=== PATIENT | female | born 1945 | race Two or more races ===

== ENCOUNTER 2021-04-25 03:12 | Emergency (ER) | payer OTHER, MEDICAID ==
[~2021-04-25] VITALS: Ht 160 cm; Wt 79.4 kg
[~2021-04-25 03:12] MED LIST: ATEN-60 OR; DOCU-55 OR; EMBREL; FER325T OR; FOLI1TAB6 OR; LEVO125T7 OR; LOVA40TA72 OR; METF-370; POTA-264 OR; PROCTOZONE CREAM; TRIA50CA40 OR
[2021-04-25 04:10] LABS: Basophils # (auto) 0 10 ^3/uL (0-0.2); Basophils % (auto) 0.2 % (0.0-2.0); Eosinophils # (auto) 0 10 ^3/uL (0-0.8); Eosinophils % (auto) 0.3 % (0.0-7.0); Hematocrit 35.4 % (36.0-46.0); Hemoglobin 11.9 g/dL (12.2-16.2); Lymphocytes # (auto) 1.1 10 ^3/uL (0.4-5.4); Lymphocytes % (auto) 23.2 % (10.0-50.0); Mean Corpuscular Hemoglobin 30.9 pg (28.0-32.0); Mean Corpuscular Hgb Conc. 33.6 g/dL (32.0-36.0); Monocytes # (auto) 0.2 10 ^3/uL (0-1.3); Monocytes % (auto) 3.4 % (0.0-12.0); Neutrophils # (auto) 3.5 10 ^3/uL (1.6-8.6); Neutrophils % (auto) 72.9 % (37.0-80.0); Red Blood Cells 3.85 10^6/uL (4.0-5.20); Red Cell Distribution Width 13.7 % (11.8-14.3); White Blood Cell 4.8 10^3/uL (4.4-10.8)
[2021-04-25 04:27] LABS: Albumin 3.7 g/dL (3.4-5.0); Anion Gap 9 (5-15); BUN/Creatinine Ratio 20.5; Blood Urea Nitrogen 18 mg/dL (7-18); Calcium 8.6 mg/dL (8.5-10.1); Carbon Dioxide 24 mmol/L (21-32); Chloride 105 mmol/L (98-107); GFR African American 81 mL/min; GFR Non-African American 67 mL/min; Glucose 141 mg/dL (74-106); Lipase 87 U/L (73-393); Potassium 3.9 mmol/L (3.5-5.1); Sodium 138 mmol/L (136-145)
[2021-04-25 04:30] LABS: Alanine Aminotransferase 41 U/L (13-56); Alkaline Phosphatase 42 U/L (45-117); Aspartate Aminotransferase 44 U/L (15-37); Bilirubin, Total 0.4 mg/dL (0.2-1.0); Total Protein 8.1 g/dL (6.4-8.2)
[2021-04-25 05:12] LABS: Urine Bacteria NONE SEEN /hpf (None Seen); Urine Blood Negative /uL (Negative); Urine Specific Gravity 1.016 (1.001-1.035); Urine WBC 1 /hpf (0 - 5)
[2021-04-25 09:20] VITALS: BP 149/63
== END 2021-04-25 09:44 | disposition home or self-care (01) ==
LOC: ER 03:12
DX: R10.84 Generalized abdominal pain (principal); I10 Essential (primary) hypertension; E11.9 Type 2 diabetes mellitus without complications; E78.5 Hyperlipidemia, unspecified; E03.9 Hypothyroidism, unspecified; Z86.2 Personal history of diseases of the blood and blood-forming organs and certain disorders involving the immune mechanism; Z79.2 Long term (current) use of antibiotics; Z79.899 Other long term (current) drug therapy; Z88.8 Allergy status to other drugs, medicaments and biological substances
CPT/HCPCS: 36415; 74176; 80053; 81001; 83605; 83690; 85025

== ENCOUNTER 2024-04-11 15:36 | Emergency (ER) | payer OTHER, MEDICAID ==
[~2024-04-11] VITALS: Ht 157.5 cm; Wt 71.8 kg
[~2024-04-11 15:36] MED LIST changes: +FOLI-119 OR; -FOLI1TAB6 OR
--- NOTE | 2024-04-11 15:52 | ED.PDOC ---
HPI (NEURO) HPI Comments 78 y.o female with PMH of HTN, DM, hyperlipidemia, thyroid disease, arthritis, and chronic back pain, presents to the ED via EMS for a chief complaint of right sided headache that started 5-6 days ago. Patient describes pain as sharp, constant, non radiating and rating a 10/10 on the pain scale. Patient states pain presented unprovoked, at rest, has been taking 600mg of Tylenol daily but has no relief. No precipitating factors noted. Patient denies any other associating symptoms or recent head trauma/falls. Time Seen by MD: 15:43 Primary Care Provider: Maxim DECKER Reviewed Notes: Nurses Notes, Director Smb Sales Notes, Medications, Allergies Information Source: Patient, Emergency Med Personnel Mode of Arrival: EMS Severity: Moderate Headache Severity: Moderate Timing: Days (5-6) Duration: Since onset Headache Quality: Sharp Headache Location: Other (right sided ) Onset: At rest Circumstances: Spontaneous History of: DM, Hypertension Modifying factors: Nothing Associated Signs and Symptoms: Headache Past Medical History PAST MEDICAL HISTORY: Anemia, Arthritis, DM, High Lipids, HTN, Thyroid Surgical History: Surgical History (Other): back 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 History Family History Family History: Reviewed,noncontributory to illness Social History Smoker: Non-Smoker Alcohol: Rarely Drugs: Denies Drug Use Lives In: Home Constitutional: denies: chills, diaphoresis, fatigue, fever, malaise, sweats, weakness, others EENTM: denies: blurred vision, double vision, ear bleeding, ear discharge, ear drainage, ear pain, ear ringing, eye pain, eye redness, hearing loss, mouth pain, mouth swelling, nasal discharge, nose bleeding, nose congestion, nose pain, photophobia, tearing, throat pain, throat swelling, voice changes, others Respiratory: denies: cough, hemoptysis, orthopnea, SOB at rest, shortness of breath, SOB with excertion, stridor, wheezing, others Cardiovascular: denies: chest pain, dizzy spells, diaphoresis, Dyspnea on exertion, edema, irregular heart beat, left arm pain, lightheadedness, palpitations, PND, syncope, others Gastrointestinal: denies: abdomen distended, abdominal pain, blood streaked bowels, constipated, diarrhea, dysphagia, difficulty swallowing, hematemesis, melena, nausea, poor appetite, poor fluid intake, rectal bleeding, rectal pain, vomiting, others Genitourinary: denies: abnormal vagina bleeding, burning, dyspareunia, dysuria, flank pain, frequency, hematuria, incontinence, pain, , vagina discharge, urgency, others Neurological: reports: headache; denies: dizziness, fainting, left sided numbness, left sided weakness, numbness, paresthesia, pre-existing deficit, right sided numbness, right sided weakness, seizure, speech problems, tingling, tremors, weakness, others Musculoskeletal: denies: back pain, gout, joint pain, joint swelling, muscle pain, muscle stiffness, neck pain, others Integumetry: denies: bruises, change in color, change in hair/nails, dryness, laceration, lesions, lumps, rash, wounds, others Allergic/Immunocompromised: denies: Difficulty Healing, Frequent Infections, Hives, Itching, others Hematologic/Lymphatic: denies: anemia, blood clots, easy bleeding, easy bruising, swollen glands, others Endocrine: denies: excessive hunger, excessive sweating, excessive thirst, excessive urination, flushing, intolerance to cold, intolerance to heat, unexplained weight gain, unexplained weight loss, others Psychiatric: denies: anxiety, bipolar disorder, depression, hopeless, panic disorder, schizophrenia, sleepless, suicidal, others All Other Systems: Reviewed and Negative Physical Exam General Appearance: Mild Distress HEENT: Normal ENT Inspection, Pharynx Normal, TMs Normal Neck: Full Range of Motion, Non-Tender, Normal, Normal Inspection Respiratory: Chest Non-Tender, Lungs Clear, No Accessory Muscle Use, No Respiratory Distress, Normal Breath Sounds Cardiovascular: No Edema, No JVD, No Murmur, No Gallop, Normal Peripheral Pulses, Regular Rate/Rhythm Breast Exam: Deferred Gastrointestinal: No Organomegaly, Non Tender, No Pulsatile Mass, Normal Bowel Sounds, Soft Genitalia: Deferred Pelvic: Deferred Rectal: Deferred Extremities: No calf tenderness, Normal capillary refill, Normal inspection, Normal range of motion, Non-tender, No pedal edema Musculoskeletal : Apperance: Normal Neurologic: Alert, 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 Was a procedure done?: No Differential Diagnosis (SZ) Seizure: Syncope CVA: Electrolyte Imbalance Headache: Cluster, Migraine, Subarachnoid Hemorrhage X-Ray, Labs, Meds, VS Vital Signs Date Time Temp Pulse Resp B/P (MAP) Pulse Ox O2 Delivery O2 Flow Rate FiO2 04/11/24 16:57 68 16 124/52 04/11/24 16:27 88 16 166/95 04/11/24 16:25 88 16 97 Room Air* 0 21 04/11/24 16:23 98.6 88 16 166/95 (118) 95 98.6 04/11/24 15:57 98.1 85 18 161/85 (110) 99 Lab Test 04/11/24 16:03 Range/Units White Blood Count 5.9 4.4-10.8 10^3/uL Red Blood Count 3.85 L 4.0-5.20 10^6/uL Hemoglobin 12.3 12.2-16.2 g/dL Hematocrit 36.4 36.0-46.0 % Mean Corpuscular Volume 94.4 80.0-100.0 fL Mean Corpuscular Hemoglobin 32.0 28.0-32.0 pg Mean Corpuscular Hemoglobin Concent 33.9 32.0-36.0 g/dL Red Cell Distribution Width 13.5 11.8-14.3 % Platelet Count 206 140-450 10^3/uL Mean Platelet Volume 7.2 6.9-10.8 fL Neutrophils (%) (Auto) 53.4 37.0-80.0 % Lymphocytes (%) (Auto) 35.1 10.0-50.0 % Monocytes (%) (Auto) 9.8 0.0-12.0 % Eosinophils (%) (Auto) 1.5 0.0-7.0 % Basophils (%) (Auto) 0.2 0.0-2.0 % Neutrophils # (Auto) 3.1 1.6-8.6 10 ^3/uL Lymphocytes # (Auto) 2.1 0.4-5.4 10 ^3/uL Monocytes # (Auto) 0.6 0-1.3 10 ^3/uL Eosinophils # (Auto) 0.1 0-0.8 10 ^3/uL Basophils # (Auto) 0 0-0.2 10 ^3/uL Nucleated Red Blood Cells 0.0 % Sodium Level 143 136-145 mmol/L Potassium Level 4.0 3.5-5.1 mmol/L Chloride Level 108 H 98-107 mmol/L Carbon Dioxide Level 29 20-31 mmol/L Anion Gap 6 5-15 Blood Urea Nitrogen 13 9-23 mg/dL Creatinine 0.95 0.550-1.02 mg/dL Glomerular Filtration Rate Calc 62 >90 mL/min BUN/Creatinine Ratio 13.7 10.0-20.0 Serum Glucose 93 74-106 mg/dL Calcium Level 9.7 8.7-10.4 mg/dL Current Medications Medications (Trade) Dose Ordered Sig/Ran Route Start Time Stop Time Status Last Admin Morphine Sulfate 4 mg ONCE ONCE IV 04/11/24 16:00 04/11/24 16:01 DC 04/11/24 16:27 Ondansetron HCl (Zofran) 4 mg ONCE ONCE IV 04/11/24 16:00 04/11/24 16:01 DC 04/11/24 16:25 CT scan of the head is negative The CBC and chemistry panel are within normal limits The patient was given morphine 4 mg IV push for the pain The patient was given Zofran 4 mg IV push for the nausea The patient had complete relief The patient was being discharged at this time with a diagnosis of tension headache Images Reviewed?: Images reviewed and evaluated by me Time of 1ST Reevaluation: 15:49 Reevaluation 1ST: Unchanged Patient Education/Counseling: Diagnosis, Treatment, Prognosis, Need For Follow Up Family Education/Counseling: No Family Present Departure 1 Departure Time of Disposition: 17:59 Impression: Primary Impression: Tension headache Disposition: 01 HOME / SELF CARE / HOMELESS Condition: Fair Discharged With: Self Critical Care Note Critical Care Time?: No Stability Stability form required: No I personally scribed for JACQUE PATTERSON MD ([email or web address]) on 04/11/24 at 15:52. El ectronically submitted by Concetta Ahmadi ([facility]). JACQUE PATTERSON MD Apr 11, 2024 15:52
--- NOTE | 2024-04-11 16:22 | DVH ---
EXAM: CT HEAD WITHOUT CONTRAST INDICATION: RICHARDSON TECHNIQUE: CT of the head without intravenous contrast. Radiation Dose Information: CT Dose: CTDI volume is 52.35 mGy. Dose-length product is 839.27 mGy*cm The dose indicators for CT are the volume Computed Tomography (CT) Dose Index (CTDIvol) and the Dose Length Product (DLP), and are measured in units of mGy and mGy-cm, respectively. These indicators are not patient dose, but values generated from the CT scanner acquisition factors. The report includes radiation exposure data for exposures received during this examination. COMPARISON: CT ABD PELVIS WO CONTRAST on DOS: 04/25/21 FINDINGS: There is no evidence of acute intracranial hemorrhage, extra-axial collection, mass effect, midline s hift, herniation or hydrocephalus. The ventricles, sulci and cisterns are age appropriate. The corral-white differentiation is intact. Patchy periventricular and subcortical white matter hypoattenuation is nonspecific but may be related to small vessel ischemic disease. Trace right sphenoid mucoperiosteal thickening . Otherwise, the visualized paranasal sinuses and mast oid air cells are clear. The surrounding soft tissues and osseous structures are unremarkable. IMPRESSION: 1. No CT evidence of acute intracranial abnormality. HS:Y
[2024-04-11 16:23] VITALS: TEMP 98.6
[2024-04-11 16:25] VITALS: PULSE 88; RESP 16; O2SAT 97
[2024-04-11] MEDS: ONDANSETRON HCL 4 MG/2 ML VIAL IV ONE (16:25)
[2024-04-11] MEDS: MORPHINE SULFATE 4 MG/ML SYR/VIAL IV ONE (16:27)
[2024-04-11 16:34] LABS: Basophils # (auto) 0 10 ^3/uL (0-0.2); Basophils % (auto) 0.2 % (0.0-2.0); Eosinophils # (auto) 0.1 10 ^3/uL (0-0.8); Eosinophils % (auto) 1.5 % (0.0-7.0); Hematocrit 36.4 % (36.0-46.0); Hemoglobin 12.3 g/dL (12.2-16.2); Lymphocytes # (auto) 2.1 10 ^3/uL (0.4-5.4); Lymphocytes % (auto) 35.1 % (10.0-50.0); Mean Corpuscular Hgb Conc. 33.9 g/dL (32.0-36.0); Mean Corpuscular Volume 94.4 fL (80.0-100.0); Monocytes # (auto) 0.6 10 ^3/uL (0-1.3); Monocytes % (auto) 9.8 % (0.0-12.0); Neutrophils # (auto) 3.1 10 ^3/uL (1.6-8.6); Neutrophils % (auto) 53.4 % (37.0-80.0); Platelet Count (auto) 206 10^3/uL (140-450); Red Blood Cells 3.85 10^6/uL (4.0-5.20); Red Cell Distribution Width 13.5 % (11.8-14.3); White Blood Cell 5.9 10^3/uL (4.4-10.8)
[2024-04-11 16:42] LABS: Chloride 108 mmol/L (98-107); Sodium 143 mmol/L (136-145)
[2024-04-11 16:43] LABS: Anion Gap 6 (5-15); Calcium 9.7 mg/dL (8.7-10.4); Carbon Dioxide 29 mmol/L (20-31)
[2024-04-11 16:48] LABS: BUN/Creatinine Ratio 13.7 (10.0-20.0); Blood Urea Nitrogen 13 mg/dL (9-23); Glucose 93 mg/dL (74-106)
[2024-04-11 18:20] VITALS: BP 141/80; PULSE 78; RESP 16; O2SAT 95
== END 2024-04-11 19:05 | disposition home or self-care (01) ==
LOC: EDBD 15:36 → ER 15:36
DX: G44.209 Tension-type headache, unspecified, not intractable (principal); E11.9 Type 2 diabetes mellitus without complications; E78.5 Hyperlipidemia, unspecified; G89.29 Other chronic pain; I10 Essential (primary) hypertension; M19.90 Unspecified osteoarthritis, unspecified site
CPT/HCPCS: 36415; 70450; 80048; 85025; 96374; 96375; 99285; J2270; J2405

== ENCOUNTER 2024-04-17 07:39 | Inpatient (IN) | payer OTHER, MEDICAID ==
[~2024-04-17] VITALS: Ht 157.5 cm; Wt 73.8 kg
[~2024-04-17 07:39] MED LIST changes: -LOVA40TA72 OR; +LOVA40TA72 PO
[2024-04-17 08:01] VITALS: PULSE 78; RESP 17; O2SAT 96
--- NOTE | 2024-04-17 08:01 | ED.PDOC ---
GI ASSESSMENT HPI Comments 78 y.o female with PMH of DM, HTN, hyperlipidemia, anemia, thyroid and arthritis, presents to the ED for a chief complaint of epigastric pain and nausea. Patient described pain as sharp, constant, and is non radiating. Patient states taking omeprazole at 0430 today which alleviated some of the pain. Patient denies any vomiting, diarrhea, urinary symptoms, fever, chills, or bloody stool. Time Seen by MD: 07:55 Primary Care Provider: Maxim DECKER Notes: Nurses Notes, Tooling Engineering Tech Notes, Medications, Allergies Allergies: Coded Allergies: Acetaminophen (Verified Adverse Reaction, 11/25/09) Hydrocodone (Verified Adverse Reaction, 11/25/09) Home Meds Reported Medications [Proctozone Cream] No Conflict Check 11/25/09 Folic Acid (Folic Acid) 1 Mg Tab, 1 MG OR DAILY 11/25/09 Ferrous Sulfate (Ferrous Sulfate) 325 Mg Tab, 325 MG OR TID 11/25/09 Atenolol (Atenolol) 25 Mg Tab, 25 MG OR DAILY 11/25/09 Lovastatin (Lovastatin) 40 Mg Tab, 40 MG OR DAILY 11/25/09 Docusate Sodium (Docusil) 100 Mg Cap, 100 MG OR 11/25/09 Potassium Chloride (K-Tabs) 10 Meq Tab, 10 MEQ OR 11/25/09 Hydrochlorothiazide W/Triamter (Triamterene/Hydrochloroth) 1 Cap Cap, 1 CAP OR DAILY 11/25/09 Levothyroxine Sodium (Levothyroxine Sodium) 125 Mcg Tab, 125 MCG OR DAILY 11/25/09 Metformin Hydrochloride (Metformin Hcl) 500 Mg Tab 11/25/09 [Embrel] No Conflict Check 11/25/09 Information Source: Patient, Emergency Med Personnel Mode of Arrival: EMS Timing: Hours Duration: Since onset Quality: Aching Vomitus: None Stool: Normal Severity: Moderate Recent: None Recent Hx of: None Pain Location: Epigastric Modifying Factors: Nothing Associated sign and symptoms: Nausea, Abdominal Pain Past Medical History PAST MEDICAL HISTORY: Anemia, Arthritis, DM, High Lipids, HTN, Thyroid Surgical History: Surgical History (Other): lower back 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 History Family History Family History: Reviewed,noncontributory to illness Social History Smoker: Non-Smoker Alcohol: Rarely Drugs: Denies Drug Use Lives In: Home Constitutional: denies: chills, diaphoresis, fatigue, fever, malaise, sweats, weakness, others EENTM: denies: blurred vision, double vision, ear bleeding, ear discharge, ear drainage, ear pain, ear ringing, eye pain, eye redness, hearing loss, mouth pain, mouth swelling, nasal discharge, nose bleeding, nose congestion, nose pain, photophobia, tearing, throat pain, throat swelling, voice changes, others Respiratory: denies: cough, hemoptysis, orthopnea, SOB at rest, shortness of breath, SOB with excertion, stridor, wheezing, others Cardiovascular: denies: chest pain, dizzy spells, diaphoresis, Dyspnea on exertion, edema, irregular heart beat, left arm pain, lightheadedness, palpitations, PND, syncope, others Gastrointestinal: reports: abdominal pain, nausea; denies: abdomen distended, blood streaked bowels, constipated, diarrhea, dysphagia, difficulty swallowing, hematemesis, melena, poor appetite, poor fluid intake, rectal bleeding, rectal pain, vomiting, others Genitourinary: denies: abnormal vagina bleeding, burning, dyspareunia, dysuria, flank pain, frequency, hematuria, incontinence, pain, , vagina discharge, urgency, others Neurological: denies: dizziness, fainting, headache, left sided numbness, left sided weakness, numbness, paresthesia, pre-existing deficit, right sided numbness, right sided weakness, seizure, speech problems, tingling, tremors, weakness, others Musculoskeletal: denies: back pain, gout, joint pain, joint swelling, muscle p ain, muscle stiffness, neck pain, others Integumetry: denies: bruises, change in color, change in hair/nails, dryness, laceration, lesions, lumps, rash, wounds, others Allergic/Immunocompromised: denies: Difficulty Healing, Frequent Infections, Hives, Itching, others Hematologic/Lymphatic: denies: anemia, blood clots, easy bleeding, easy bruising, swollen glands, others Endocrine: denies: excessive hunger, excessive sweating, excessive thirst, excessive urination, flushing, intolerance to cold, intolerance to heat, unexplained weight gain, unexplained weight loss, others Psychiatric: denies: anxiety, bipolar disorder, depression, hopeless, panic disorder, schizophrenia, sleepless, suicidal, others All Other Systems: Reviewed and Negative Physical Exam General Appearance: Moderate Distress HEENT: Normal ENT Inspection, Pharynx Normal, TMs Normal Neck: Full Range of Motion, Non-Tender, Normal, Normal Inspection Respiratory: Chest Non-Tender, Lungs Clear, No Accessory Muscle Use, No Respiratory Distress, Normal Breath Sounds Cardiovascular: No Edema, No JVD, No Murmur, No Gallop, Normal Peripheral Pulses, Regular Rate/Rhythm Breast Exam: Deferred Gastrointestinal: Diffuse Genitalia: Deferred Pelvic: Deferred Rectal: Deferred Extremities: No calf tenderness, Normal capillary refill, Normal inspection, Normal range of motion, Non-tender, No pedal edema Musculoskeletal : Apperance: Normal Neurologic: Alert, bottle cleaner II-XII nml as Tested, No Motor Deficits, Normal Affect, Normal Mood, No Sensory Deficits Cerebellar Function: NOT DONE Reflexes: NOT DONE Skin: Dry, Normal Color, Warm Peripheral Pulses: 3+ Radial (R), 3+ Radial (L) Lymphatic: No Adenopathy Was a procedure done? Was a procedure done?: No GI differential Dx Differential Diagnosis: Constipation, Diverticular disease, Esophagitis, Gastritis/PUD, Gastroenteritis, Viral X-Ray, Labs, Meds, VS Vital Signs Date Time Temp Pulse Resp B/P (MAP) Pulse Ox O2 Delivery O2 Flow Rate FiO2 04/17/24 08:14 98.5 80 16 214/100 (138) 98 04/17/24 08:13 76 209/86 04/17/24 08:01 78 17 209/86 (127) 96 04/17/24 08:01 78 17 96 Room Air* 0 21 04/17/24 07:48 67 Lab Test 04/17/24 08:20 Range/Units White Blood Count 5.1 4.4-10.8 10^3/uL Red Blood Count 4.22 4.0-5.20 10^6/uL Hemoglobin 13.2 12.2-16.2 g/dL Hematocrit 40.3 # 36.0-46.0 % Mean Corpuscular Volume 95.4 80.0-100.0 fL Mean Corpuscular Hemoglobin 31.3 28.0-32.0 pg Mean Corpuscular Hemoglobin Concent 32.8 32.0-36.0 g/dL Red Cell Distribution Width 14.0 11.8-14.3 % Platelet Count 219 140-450 10^3/uL Mean Platelet Volume 7.2 6.9-10.8 fL Neutrophils (%) (Auto) 62.2 37.0-80.0 % Lymphocytes (%) (Auto) 29.1 10.0-50.0 % Monocytes (%) (Auto) 8.3 0.0-12.0 % Eosinophils (%) (Auto) 0.3 0.0-7.0 % Basophils (%) (Auto) 0.1 0.0-2.0 % Neutrophils # (Auto) 3.2 1.6-8.6 10 ^3/uL Lymphocytes # (Auto) 1.5 0.4-5.4 10 ^3/uL Monocytes # (Auto) 0.4 0-1.3 10 ^3/uL Eosinophils # (Auto) 0 0-0.8 10 ^3/uL Basophils # (Auto) 0 0-0.2 10 ^3/uL Nucleated Red Blood Cells 0.0 % Sodium Level 144 136-145 mmol/L Potassium Level 4.9 3.5-5.1 mmol/L Chloride Level Pending Carbon Dioxide Level 29 20-31 mmol/L Anion Gap Pending Blood Urea Nitrogen 17 9-23 mg/dL Creatinine 0.87 0.550-1.02 mg/dL Glomerular Filtration Rate Calc 69 >90 mL/min BUN/Creatinine Ratio 19.5 10.0-20.0 Serum Glucose 120 H 74-106 mg/dL Calcium Level 10.1 8.7-10.4 mg/dL Troponin I High Sensitivity 6 </=34 ng/L Current Medications Medications (Trade) Dose Ordered Sig/Ran Route Start Time Stop Time Status Last Admin Labetalol HCl (Labetalol HCl) 10 mg ONCE ONCE IV 04/17/24 08:00 04/17/24 08:02 DC 04/17/24 08:13 Belladonna Alkaloids/ Phenobarbital ( Elixir) 10 ml ONCE ONCE PO 04/17/24 08:00 04/17/24 08:02 DC 04/17/24 08:13 Al Hydrox/Mg Hydrox/Simethicone (Maalox Plus) 30 ml ONCE ONCE PO 04/17/24 08:00 04/17/24 08:02 DC 04/17/24 08:13 Lidocaine HCl (Xylocaine 2% Viscous) 15 ml ONCE ONCE PO 04/17/24 08:00 04/17/24 08:02 DC 04/17/24 08:13 Patient alert. Came in complaining of abdominal pain. Vitals stable. Answering all questions. Was given GI cocktail. Abdomen is soft. Blood pressure elevated. Was given labetalol. WBC within normal limits. Hemoglobin within normal limits. Cardiac marker within normal limits. Explained to the patient. Continue cardiac monitoring. CT scan of the abdomen reviewed does not show any acute changes. CT ABDOMEN AND PELVIS WITHOUT CONTRAST CLINICAL HISTORY: pain TECHNIQUE: Multidetector CT of the abdomen was performed from lung bases to pubic symphysis. Imaging was performed without IV contrast. Axial, coronal and sagittal multiplanar reformats were obtained from the axial data set by the sree hnologist. Radiation optimization: All CT scans at this facility use at least one of these dose optimization techniques: automated exposure control mA and/or kV adjustment per patient size (includes targeted exams where dose is matched to clinical indication) or iterative reconstruction. Radiation Dose Information: CT Dose: CTDI volume is 9.3 mGy. Dose-length product is 470.03 mGy*cm Comparison: CT ABD PELVIS WO CONTRAST on DOS: 04/25/21 FINDINGS: Evaluation of the abdominal viscera is limited without intravenous contrast. The liver, gallbladder, pancreas, kidneys, adrenal glands, and spleen appear within normal limits. There is no gross evidence of abdominal lymphadenopathy. There is no free fluid or free air. The stomach grossly appears unremarkable. The small and large bowel loops demonstrate normal caliber. The abdominal aorta and IVC appear within normal limits. There is a nonspecific 3.5 cm cystic structure in the left inguinal soft tissues anterior to the left hip joint. The bladder appears unremarkable for the degree of distention. The uterus grossly appears within normal limits. There is no evidence of a pelvic mass or lymphadenopathy. There is no free fluid collection. Lung bases are clear. There is multilevel fusion hardware in the lumbar spine. IMPRESSION: 1. There is no acute process in the abdomen and pelvis.. 2. Nonspecific 3.5 cm cystic structure in the left inguinal soft tissues, anterior to the left hip joint. Time of 1ST Reevaluation: 08:57 Reevaluation 1ST: Unchanged Patient Education/Counseling: Diagnosis, Treatment, Prognosis Family Education/Counseling: No Family Present Departure 1 Departure Time of Disposition: 08:59 Impression: Primary Impression: Hypertensive emergency Additional Impressions: Acute abdominal pain Gastritis Qualified Codes: K29.00 - Acute gastritis without bleeding Disposition: ADMITTED INPATIENT Admit to: Med Surg Condition: Guarded Critical Care Note Critical Care Time?: Yes (45 min-critical care time only) Stability Stability form required: No I personally scribed for PAPA MARKS MD ([email or web address]) on 04/17/24 at 08:01. Electronically submitted by Concetta Ahmadi ([facility]). I personally scribed for PAPA MARKS MD ([email or web address]) on 04/17/24 at 09:03. Electronically submitted by Concetta Ahmadi ([facility]). PAPA MARKS MD Apr 17, 2024 08:01
[2024-04-17] MEDS: MAALOX PLUS or MAALOX 30 ML PO ONE (08:13)
[2024-04-17] MEDS: DONNATAL 5ml ORAL Elix (BELLADONNA ALK-PHENOBARB) PO ONE (08:13)
[2024-04-17] MEDS: LABETALOL HCL 20 MG/4 ML VL IV ONE (08:13)
[2024-04-17] MEDS: LIDOCAINE VISCOUS 2% 15ML UD PO ONE (08:13)
[2024-04-17 08:33] LABS: Basophils # (auto) 0 10 ^3/uL (0-0.2); Basophils % (auto) 0.1 % (0.0-2.0); Eosinophils # (auto) 0 10 ^3/uL (0-0.8); Eosinophils % (auto) 0.3 % (0.0-7.0); Hematocrit 40.3 % (36.0-46.0); Hemoglobin 13.2 g/dL (12.2-16.2); Lymphocytes # (auto) 1.5 10 ^3/uL (0.4-5.4); Lymphocytes % (auto) 29.1 % (10.0-50.0); Mean Corpuscular Hemoglobin 31.3 pg (28.0-32.0); Mean Corpuscular Hgb Conc. 32.8 g/dL (32.0-36.0); Mean Corpuscular Volume 95.4 fL (80.0-100.0); Monocytes # (auto) 0.4 10 ^3/uL (0-1.3); Monocytes % (auto) 8.3 % (0.0-12.0); Neutrophils # (auto) 3.2 10 ^3/uL (1.6-8.6); Neutrophils % (auto) 62.2 % (37.0-80.0); Platelet Count (auto) 219 10^3/uL (140-450); Red Blood Cells 4.22 10^6/uL (4.0-5.20); White Blood Cell 5.1 10^3/uL (4.4-10.8)
[2024-04-17 08:43] LABS: Potassium 4.9 mmol/L (3.5-5.1); Sodium 144 mmol/L (136-145)
[2024-04-17 08:44] LABS: Calcium 10.1 mg/dL (8.7-10.4); Carbon Dioxide 29 mmol/L (20-31)
[2024-04-17 08:49] LABS: BUN/Creatinine Ratio 19.5 (10.0-20.0); Blood Urea Nitrogen 17 mg/dL (9-23); Glucose 120 mg/dL (74-106)
--- NOTE | 2024-04-17 08:50 | DVH ---
CT ABDOMEN AND PELVIS WITHOUT CONTRAST CLINICAL HISTORY: pain TECHNIQUE: Multidetector CT of the abdomen was performed from lung bases to pubic symphysis. Imaging was performed without IV contrast. Axial, coronal and sagittal multiplanar reformats were obtained fr om the axial data set by the technologist. Radiation optimization: All CT scans at this facility use at least one of these dose optimization sree hniques: automated exposure control mA and/or kV adjustment per patient size (includes targeted exam s where dose is matched to clinical indication) or iterative reconstruction. Radiation Dose Information: CT Dose: CTDI volume is 9.3 mGy. Dose-length product is 470.03 mGy*cm Comparison: CT ABD PELVIS WO CONTRAST on DOS: 04/25/21 FINDINGS: Evaluation of the abdominal viscera is limited without intravenous contrast. The liver, gallbladder, pancreas, kidneys, adrenal glands, and spleen appear within normal limits. There is no gross evidence of abdominal lymphadenopathy. There is no free fluid or free air. The stomach grossly appears unremarkable. The small and large bowel loops demonstrate normal caliber. The abdominal aorta and IVC appear within normal limits. There is a nonspecific 3.5 cm cystic structure in the left inguinal soft tissues anterior to the left hip joint. The bladder appears unremarkable for the degree of distention. The uterus grossly appear s within normal limits. There is no evidence of a pelvic mass or lymphadenopathy. There is no free fl uid collection. Lung bases are clear. There is multilevel fusion hardware in the lumbar spine. IMPRESSION: 1. There is no acute process in the abdomen and pelvis.. 2. Nonspecific 3.5 cm cystic structure in the left inguinal soft tissues, anterior to the left hip stan int. HS:Y
[2024-04-17 09:06] LABS: Anion Gap 8 (5-15); Chloride 107 mmol/L (98-107)
[2024-04-17] MEDS ORDERED: CARV6.2551 PO (11:15)
[2024-04-17] MEDS ORDERED: ONDANSETRON HCL 4 MG/2 ML VIAL IV PRN (11:15)
[2024-04-17] MEDS ORDERED: NITROGLYCERIN 0.4 MG SL TAB SL PRN (11:15)
[2024-04-17] MEDS ORDERED: MORPHINE SULFATE INJ 2 MG/ml SYRG IV PRN (11:15)
[2024-04-17 11:41] LABS: Urine Bacteria None Seen /hpf (None Seen)
[2024-04-17 12:26] LABS: Urine Blood TRACE /uL (Negative); Urine Clarity Clear (Clear); Urine Color Colorless (Yellow); Urine Protein, UAD 1+ (Negative); Urine Specific Gravity 1.013 (1.001-1.035); Urine Urobilinogen Normal (Negative); Urine WBC <1 /hpf (0 - 5)
[2024-04-17] MEDS: CARVEDILOL 3.125 MG TAB PO SCH (12:33)
--- NOTE | 2024-04-17 12:45 | DVHHP2 ---
History of Present Illness Reason for Visit: Hypertensive urgency History of Present Illness 78-year-old female presented to the ED with chief complaint of epigastric pain, nausea and hypertension, patient's blood pressure in the ED was 209/86. Patient states she took an omeprazole at home at 4:30 a.m. which did alleviate some pain. Patient does follow up PCP regularly, they have been monitoring her thyroid levels and adjusting levothyroxine as needed. Abdomen is soft and nontender. CT abdomen/pelvis does not show any acute changes. Patient states after taking GI cocktail her abdominal pain and is gone, however blood pressure is still elevated. Patient denies chest pain, headache, dizziness, diaphoresis, shortness of breath, abdominal pain, no nausea, vomiting, fever, or chills endorsed by the patient. Patient was admitted for further evaluation medical management. Past Medical History Anemia, Arthritis, DM, High Lipids, HTN, Thyroid Past Surgical History Family History Reviewed noncontributory to the management of this case Smoke: No ALCOHOL: rare Drugs: None Lives: with Family Review of Systems Constitutional: No: Fever, Chills, Sweats, Weakness, Malaise, Other Eyes: No: Pain, Vision change, Conjunctivae inflammation, Eyelid inflammation, Other, Redness ENT: No: Ear pain, Ear discharge, Nose pain, Nose discharge, Nose congestion, Mouth pain, Mouth swelling, Throat pain, Throat swelling, Other Respiratory: No: Cough, Dry, Shortness of breath, SOB with excertion, Wheezing, Hemoptysis, Pleuritic Pain, Sputum, Wheezing, Other Cardiovascular: No: Chest Pain, Palpitations, Orthopnea, Paroxysmal Noc. Dyspnea, Edema, Lt Headedness, Other Gastrointestinal: No: Nausea, Vomiting, Abdominal Pain, Diarrhea, Constipation, Melena, Hematochezia, Other Genitourinary: No Dysuria, No Frequency, No Incontinence, No Hematuria, No Retention, No Other Musculoskeletal: No: other, neck pain, shoulder pain, arm pain, back pain, hand pain, leg pain, foot pain Skin: No: Rash, Lesions, Jaundice, Bruising, Other Neurological: No: Weakness, Numbness, Incoordination, Change in speech, Confusion, Seizures, Other Allergies: Coded Allergies: Acetaminophen (Verified Adverse Reaction, Unknown, 04/17/24) Hydrocodone (Verified Adverse Reaction, Unknown, 04/17/24) Medications Current Medications Medications Dose Ordered Sig/Ran Route Start Time Stop Time Status Last Admin Dose Admin Ondansetron HCl 4 mg Q4HP PRN IV 04/17/24 11:15 Nitroglycerin 0.4 mg Q5MINP PRN SL 04/17/24 11:15 Morphine Sulfate 2 mg Q30M PRN IV 04/17/24 11:15 Pantoprazole Sodium 40 mg DAILY IV 04/18/24 10:00 Levothyroxine Sodium 75 mcg QAM@0600 PO 04/18/24 06:00 Carvedilol 6.25 mg Q12HR PO 04/17/24 12:15 04/17/24 12:33 6.25 MG Hydralazine HCl 10 mg Q6HP PRN IV 04/17/24 12:15 Exam Vital Signs Vital Signs Date Time Temp Pulse Resp B/P (MAP) Pulse Ox O2 Delivery O2 Flow Rate FiO2 04/17/24 12:33 70 163/86 04/17/24 08:14 98.5 16 98 04/17/24 08:01 Room Air* 0 21 General Appearance: Alert, Oriented X3, Cooperative, No acute distress HEENT: Atraumatic, PERRLA, EOMI, Mucous membr. moist/pink Respiratory: Clear to auscultation, Normal air movement Cardiovascular: Regular rate, Normal S1, Normal S2, No murmurs Abdominal: Normal bowel sounds, Soft, No tenderness, No hepatospenomegaly, No masses Extremities: No clubbing, No cyanosis, No edema, Normal pulses, No tenderness/swelling Skin: No rashes, No breakdown, No significant lesion Neuro: Normal gait, Normal speech, Strength at 5/5 X4 ext, Normal tone, Sensation intact, Cranial nerves 3-12 NL, Reflexes 2+ Psych/Mental Status: Mental status NL, Mood NL Labs/Xrays Labs, imaging and ED notes reviewed Labs Test 04/17/24 09:36 04/17/24 08:20 Range/Units Urine Color Colorless Yellow Urine Clarity Clear Clear Urine pH 7.0 5.0-9.0 Urine Specific [place] 1.013 1.001-1.035 Urine Protein 1+ H Negative Urine Ketones Negative Negative Urine Blood Trace H Negative /uL Urine Nitrite Negative Negative Urine Bilirubin Negative Negative Urine Urobilinogen Normal Negative mg/dL Urine Leukocyte Esterase Negative Negative /uL Urine RBC 8 0 - 4 /hpf Urine WBC <1 0 - 5 /hpf Urine Squamous Epithelial Cells Few <5 /hpf Urine Bacteria None seen None Seen /hpf Urine Glucose Normal Normal mg/dL White Blood Count 5.1 4.4-10.8 10^3/uL Red Blood Count 4.22 4.0-5.20 10^6/uL Hemoglobin 13.2 12.2-16.2 g/dL Hematocrit 40.3 # 36.0-46.0 % Mean Corpuscular Volume 95.4 80.0-100.0 fL Mean Corpuscular Hemoglobin 31.3 28.0-32.0 pg Mean Corpuscular Hemoglobin Concent 32.8 32.0-36.0 g/dL Red Cell Distribution Width 14.0 11.8-14.3 % Platelet Count 219 140-450 10^3/uL Mean Platelet Volume 7.2 6.9-10.8 fL Neutrophils (%) (Auto) 62.2 37.0-80.0 % Lymphocytes (%) (Auto) 29.1 10.0-50.0 % Monocytes (%) (Auto) 8.3 0.0-12.0 % Eosinophils (%) (Auto) 0.3 0.0-7.0 % Basophils (%) (Auto) 0.1 0.0-2.0 % Neutrophils # (Auto) 3.2 1.6-8.6 10 ^3/uL Lymphocytes # (Auto) 1.5 0.4-5.4 10 ^3/uL Monocytes # (Auto) 0.4 0-1.3 10 ^3/uL Eosinophils # (Auto) 0 0-0.8 10 ^3/uL Basophils # (Auto) 0 0-0.2 10 ^3/uL Nucleated Red Blood Cells 0.0 % Sodium Level 144 136-145 mmol/L Potassium Level 4.9 3.5-5.1 mmol/L Chloride Level 107 98-107 mmol/L Carbon Dioxide Level 29 20-31 mmol/L Anion Gap 8 5-15 Blood Urea Nitrogen 17 9-23 mg/dL Creatinine 0.87 0.550-1.02 mg/dL Glomerular Filtration Rate Calc 69 >90 mL/min BUN/Creatinine Ratio 19.5 10.0-20.0 Serum Glucose 120 H 74-106 mg/dL Calcium Level 10.1 8.7-10.4 mg/dL Troponin I High Sensitivity 6 </=34 ng/L Assessment/Plan Assessment/Plan Hypertensive emergency Admit to telemetry Resume home medications Hydralazine p.r.n. systolic blood pressure greater than 150 mmHg Gastritis versus PUD Protonix IV daily Hypothyroidism Continue levothyroxine FEN/PPX GI prophylaxis-Protonix VTE prophylaxis not indicated Clear liquid diet- can advance as tolerated Plan discussed with: Patient My Orders Orders - WILBUR PHILIPPE Procedure Category Date Status Time Admit ADMIT 04/17/24 Transmitted 11:02 Code Status CODE 04/17/24 Transmitted 11:02 Vital Signs [facility] 04/17/24 In Process 11:02 Review Orders With [facility] 04/17/24 In Process Adm. 11:02 Up Ad Ghislaine ELMO 04/17/24 In Process 11:02 Notify Of Changes [facility] 04/17/24 In Process From Base 11:02 Advance Directive [facility] 04/17/24 In Process 11:02 Basic Metabolic Panel LAB 04/18/24 Verified 04:00 Complete Blood Count LAB 04/18/24 Verified 04:00 Patient Condition ORDERS 04/17/24 Transmitted 11:02 Allergies ELMO 04/17/24 In Process 11:02 Ondansetron Hcl PHA 04/17/24 In Process (Zofran) 11:15 Clear Liq Diet DIET 04/17/24 Transmitted Lunch Nitroglycerin PHA 04/17/24 In Process Sublingual (Ntrostat 11:15 Morphine Sulfate PHA 04/17/24 In Process Injection 11:15 Stat Ekg For Chest ELMO 04/17/24 In Process Pain 11:02 Notify Of Changes [facility] 04/17/24 In Process From Base 11:02 Line Technician For [facility] 04/17/24 In Process 24 Hours 11:02 Emergency Dysrhythmia ELMO 04/17/24 In Process Protocol 11:02 Rhythm Strips Once [facility] 04/17/24 In Process Every Shift 11:02 Oxygen By Nasal RT 04/17/24 Transmitted Cannula 11:02 Pantoprazole PHA 04/18/24 In Process (Protonix) 10:00 Levothyroxine Tablet PHA 04/18/24 In Process (Synthroid Tablet) 06:00 Carvedilol Tablet PHA 04/17/24 In Process (Coreg Tablet) 12:15 Hydralazine Injection PHA 04/17/24 In Process (Apresoline Inject 12:15 Date of Service: Apr 17, 2024 Billing Provider: WILBUR PHILIPPE Common Visit Codes: [id number] INP/OBS CARE (HIGH) WILBUR PHILIPPE Apr 17, 2024 12:45
[2024-04-17 14:09] VITALS: BP 158/67; PULSE 61; RESP 18; TEMP 97.8; O2SAT 96
[2024-04-17] MEDS: hydrALAZINE HCL 20 MG/ML VL IV PRN (15:17)
--- NOTE | 2024-04-17 19:04 | ECG ---
[facility] Test Date: 2024-04-17 Test Time: 07:48:35 Pat Name: DEVAN MANN Department: ER Room: 0280T Gender: F Environmental Officer: DAGMAR : 1945 Requested By: PAPA MARKS Order Number: [id number] Reading MD: Measurements Intervals [place] Rate: 67 P: 74 [place]: 172 QRS: 49 QRSD: 109 T: 56 QT: 438 QTc: 463 Interpretive Statements Sinus rhythm Baseline wander in lead(s) V1,V3,V4,V5,V6 Please click the below link to view image of tracing.
[2024-04-17 20:00] VITALS: PULSE 76; PULSE 97; RESP 18; O2SAT 94
[2024-04-17 21:00] VITALS: BP 112/38; PULSE 77; RESP 18; TEMP 98.6; O2SAT 94
[2024-04-17] MEDS: ACETAMINOPHEN 325 MG TAB PO PRN (21:54)
[2024-04-17] MEDS ORDERED: CARVEDILOL 3.125 MG TAB PO SCH (22:00)
[2024-04-18 05:00] VITALS: BP 116/55; PULSE 74; RESP 18; TEMP 98.3; O2SAT 92
[2024-04-18] MEDS: LEVOTHYROXINE SODIUM 25 MCG TAB PO SCH (06:00)
[2024-04-18 06:34] LABS: Basophils # (auto) 0 10 ^3/uL (0-0.2); Basophils % (auto) 0.4 % (0.0-2.0); Eosinophils # (auto) 0.1 10 ^3/uL (0-0.8); Eosinophils % (auto) 1.8 % (0.0-7.0); Hematocrit 36.3 % (36.0-46.0); Hemoglobin 12.1 g/dL (12.2-16.2); Lymphocytes # (auto) 1.5 10 ^3/uL (0.4-5.4); Mean Corpuscular Hemoglobin 31.8 pg (28.0-32.0); Mean Corpuscular Hgb Conc. 33.4 g/dL (32.0-36.0); Mean Corpuscular Volume 95.1 fL (80.0-100.0); Monocytes # (auto) 0.5 10 ^3/uL (0-1.3); Monocytes % (auto) 9.1 % (0.0-12.0); Neutrophils # (auto) 3.1 10 ^3/uL (1.6-8.6); Neutrophils % (auto) 59.7 % (37.0-80.0); Nucleated Red Blood Cells % 0.2 %; Platelet Count (auto) 185 10^3/uL (140-450); Red Blood Cells 3.81 10^6/uL (4.0-5.20); Red Cell Distribution Width 13.7 % (11.8-14.3); White Blood Cell 5.1 10^3/uL (4.4-10.8)
[2024-04-18 06:42] LABS: Anion Gap 9 (5-15); Carbon Dioxide 27 mmol/L (20-31); Chloride 108 mmol/L (98-107); Potassium 3.8 mmol/L (3.5-5.1); Sodium 144 mmol/L (136-145)
[2024-04-18 06:43] LABS: Calcium 9.2 mg/dL (8.7-10.4)
[2024-04-18 06:48] LABS: BUN/Creatinine Ratio 16.9 (10.0-20.0); Blood Urea Nitrogen 13 mg/dL (9-23); Glucose 95 mg/dL (74-106)
[2024-04-18 08:00] VITALS: PULSE 75
[2024-04-18 09:27] VITALS: BP 132/71; PULSE 77; RESP 17; TEMP 97.5; O2SAT 95
[2024-04-18 09:28] VITALS: BP 132/71; PULSE 77; RESP 17; TEMP 97.5; O2SAT 95
[2024-04-18] MEDS: PANTOPRAZOLE 40 MG/10 ML VIAL INJ IV SCH (10:00)
[2024-04-18] MEDS ORDERED: UPAD15TA PO (10:05)
[2024-04-18] MEDS ORDERED: SEMA3TAB2 PO (10:08)
[2024-04-18] MEDS ORDERED: FAMO-12 PO (10:14)
[2024-04-18] MEDS ORDERED: PANT1INJ3 PO (10:14)
--- NOTE | 2024-04-18 13:02 | DVHPN2 ---
Reviewed: Care Plan, H&P, Labs, Medications, Previous Orders, Radiology Changes from previous H/P or p: No Changes Eyes: No Pain, No Vision change, No Conjunctivae inflammation, No Eyelid inflammation, No Other, No Redness ENT: No Ear pain, No Ear discharge, No Nose pain, No Nose discharge, No Nose congestion, No Mouth pain, No Mouth swelling, No Throat pain, No Throat swelling, No Other Cardiovascular: No Chest Pain, No Palpitations, No Orthopnea, No Paroxysmal Noc. Dyspnea, No Edema, No Lt Headedness, No Other Respiratory: No Cough, No Dry, No Shortness of breath, No SOB with excertion, No Wheezing, No Hemoptysis, No Pleuritic Pain, No Sputum, No Other Gastrointestinal: No Nausea, No Vomiting, No Abdominal Pain, No Diarrhea, No Constipation, No Melena, No Hematochezia, No Other Genitourinary: No Dysuria, No Frequency, No Incontinence, No Hematuria, No Retention, No Other Musculoskeletal: No other, No neck pain, No shoulder pain, No arm pain, No back pain, No hand pain, No leg pain, No foot pain Skin: No Rash, No Lesions, No Jaundice, No Bruising, No Other Objective Vitals Vital Signs Date Time Temp Pulse Resp B/P (MAP) Pulse Ox O2 Delivery O2 Flow Rate FiO2 04/18/24 10:35 77 132/71 04/18/24 09:28 97.5 17 95 97.5 04/18/24 07:30 Room Air* 0 21 Intake/Output Intake and Output 04/18/24 07:00 Intake Total 980 ml Output Total 800 ml Balance 180 ml Intake Oral 980 ml Output Urine Total 800 ml Medications Current Medications Medications Dose Ordered Sig/Ran Route Start Time Stop Time Status Last Admin Dose Admin Ondansetron HCl 4 mg Q4HP PRN IV 04/17/24 11:15 Nitroglycerin 0.4 mg Q5MINP PRN SL 04/17/24 11:15 Morphine Sulfate 2 mg Q30M PRN IV 04/17/24 11:15 Pantoprazole Sodium 40 mg DAILY IV 04/18/24 10:00 Levothyroxine Sodium 75 mcg QAM@0600 PO 04/18/24 06:00 04/18/24 06:00 75 MCG Carvedilol 6.25 mg Q12HR PO 04/17/24 12:15 04/18/24 10:35 6.25 MG Hydralazine HCl 10 mg Q6HP PRN IV 04/17/24 12:15 04/17/24 15:17 10 MG Acetaminophen 650 mg Q6HP PRN PO 04/17/24 21:30 04/18/24 06:47 650 MG Laboratory Results Laboratory Tests 04/18/24 05:01 Chemistry Test 04/18/24 05:01 Calcium Level 9.2 mg/dL (8.7-10.4) Urinalysis Test 04/17/24 09:36 Urine Color Colorless (Yellow) Urine Clarity Clear (Clear) Urine pH 7.0 (5.0-9.0) Urine Specific [place] 1.013 (1.001-1.035) Urine Protein 1+ (Negative) H Urine Ketones Negative (Negative) Urine Blood Trace /uL (Negative) H Urine Nitrite Negative (Negative) Urine Bilirubin Negative (Negative) Urine Urobilinogen Normal mg/dL (Negative) Urine Leukocyte Esterase Negative /uL (Negative) Urine RBC 8 /hpf (0 - 4) Urine WBC <1 /hpf (0 - 5) Urine Squamous Epithelial Cells Few /hpf (<5) Urine Bacteria None seen /hpf (None Seen) Urine Glucose Normal mg/dL (Normal) Labs and/or images reviewed: Labs reviewed by me, Image(s) reviewed by me Assessment/Plan Assessment/Plan Accelerated hypertension 209, now under control medications Rheumatoid arthritis Chronic anemia Diabetes Hypercholesterolemia Hypothyroidism Troponin negative All other labs are normal Patient feels better and wants to go home Patient's daughter at bedside Plan discussed with: Patient Date of Service: Apr 18, 2024 Billing Provider: SETH STEINER MD Common Visit Codes: [id number] INP/OBS CARE(HIGH) SETH STEINER MD Apr 18, 2024 13:02
--- NOTE | 2024-04-18 13:06 | DVHDS2 ---
Discharge Summary Date of Admission Apr 17, 2024 at 11:02 Date of Discharge: Apr 18, 2024 Admitting Diagnosis Epigastric pain Wounds: None Labs/Diagnostic Data: Laboratory Results Test 04/18/24 05:01 04/17/24 09:36 04/17/24 08:20 White Blood Count 5.1 10^3/uL (4.4-10.8) Red Blood Count 3.81 10^6/uL (4.0-5.20) Hemoglobin 12.1 g/dL (12.2-16.2) Hematocrit 36.3 % (36.0-46.0) Mean Corpuscular Volume 95.1 fL (80.0-100.0) Mean Corpuscular Hemoglobin 31.8 pg (28.0-32.0) Mean Corpuscular Hemoglobin Concent 33.4 g/dL (32.0-36.0) Red Cell Distribution Width 13.7 % (11.8-14.3) Platelet Count 185 10^3/uL (140-450) Mean Platelet Volume 7.3 fL (6.9-10.8) Neutrophils (%) (Auto) 59.7 % (37.0-80.0) Lymphocytes (%) (Auto) 29.0 % (10.0-50.0) Monocytes (%) (Auto) 9.1 % (0.0-12.0) Eosinophils (%) (Auto) 1.8 % (0.0-7.0) Basophils (%) (Auto) 0.4 % (0.0-2.0) Neutrophils # (Auto) 3.1 10 ^3/uL (1.6-8.6) Lymphocytes # (Auto) 1.5 10 ^3/uL (0.4-5.4) Monocytes # (Auto) 0.5 10 ^3/uL (0-1.3) Eosinophils # (Auto) 0.1 10 ^3/uL (0-0.8) Basophils # (Auto) 0 10 ^3/uL (0-0.2) Nucleated Red Blood Cells 0.2 % Sodium Level 144 mmol/L (136-145) Potassium Level 3.8 mmol/L (3.5-5.1) Chloride Level 108 mmol/L (98-107) Carbon Dioxide Level 27 mmol/L (20-31) Anion Gap 9 (5-15) Blood Urea Nitrogen 13 mg/dL (9-23) Creatinine 0.77 mg/dL (0.550-1.02) Glomerular Filtration Rate Calc 80 mL/min (>90) BUN/Creatinine Ratio 16.9 (10.0-20.0) Serum Glucose 95 mg/dL (74-106) Calcium Level 9.2 mg/dL (8.7-10.4) Urine Color Colorless (Yellow) Urine Clarity Clear (Clear) Urine pH 7.0 (5.0-9.0) Urine Specific [place] 1.013 (1.001-1.035) Urine Protein 1+ (Negative) Urine Ketones Negative (Negative) Urine Blood Trace /uL (Negative) Urine Nitrite Negative (Negative) Urine Bilirubin Negative (Negative) Urine Urobilinogen Normal mg/dL (Negative) Urine Leukocyte Esterase Negative /uL (Negative) Urine RBC 8 /hpf (0 - 4) Urine WBC <1 /hpf (0 - 5) Urine Squamous Epithelial Cells Few /hpf (<5) Urine Bacteria None seen /hpf (None Seen) Urine Glucose Normal mg/dL (Normal) Troponin I High Sensitivity 6 ng/L (</=34) Other Laboratory Tests 04/18/24 05:01 Brief Hx & Hospital Course: 78-year-old female with a history of hypertension rheumatoid arthritis anemia diabetes hypercholesterolemia hypothyroidism GERD came in complaining of epigastric pain she takes Protonix at home. All labs were normal troponin negative patient did not have any chest pain CT abdomen pelvis without contrast negative blood pressure was high 209 diagnosed with a accelerated hypertension treated with the medications came back to normal at the time of discharge. The patient is symptom-free and wants to go home her daughter with the bedside discharged home she will continue all her home meds and follow up with her primary Dr Dr. Higgins. . Consults/Reason for consult none Operations or Procedures CT abdomen pelvis without contrast Condition at Discharge: Fair Final Diagnosis/Problems List Accelerated hypertension 209, now under control medications Rheumatoid arthritis Chronic anemia Diabetes Hypercholesterolemia Hypothyroidism Troponin negative All other labs are normal Discharge Disposition: Home Discharge Instruct/Medications Diet: Cardiac 2g Na,low cholest Activity: Light activity Follow Up/Referral: Resume all previous home medications Follow up with the primary Medications: None 35 (Time taken for discharge summary 35 minutes) Discharge Statement: "Patient was advised to return to the ER or call 911 if any headaches, dizziness, shortness of breath, chest pain, abdominal pain, bleeding, fevers, or worsening of medical condition. Patient was counseled about treatment plan, medications, possible side effects, patientverbalized understanding. All questions were answered to the best of my ability. This discharge took greater then 30 minutes in planning, reviewing documentation, counseling the patient, and discussing with other team members." ASSESSMENT ASSESSMENT Hospital Course Improved Assessment Accelerated hypertension 209, now under control medications Rheumatoid arthritis Chronic anemia Diabetes Hypercholesterolemia Hypothyroidism Troponin negative All other labs are normal Date of Service: Apr 18, 2024 Billing Provider: SETH STEINER MD Common Visit Codes: [id number] DISCH DAY >30min SETH STEINER MD Apr 18, 2024 13:06
[2024-04-18 13:59] VITALS: BP 100/55; PULSE 71; RESP 17; TEMP 98.7; O2SAT 96
[2024-04-18 14:30] VITALS: BP 132/71; PULSE 77; TEMP 37.1
== END 2024-04-18 14:53 | disposition home or self-care (01) | DRG 392 ==
LOC: ER 07:39 → EDBD 07:39 → TELE 11:02 → TELE-WESTW 13:54
PROVIDERS: ADMIT Registered Nurse General Practice; ATTEND Family Medicine
DX: K21.9 Gastro-esophageal reflux disease without esophagitis (principal); I16.1 Hypertensive emergency; K29.70 Gastritis, unspecified, without bleeding; E03.9 Hypothyroidism, unspecified; E11.9 Type 2 diabetes mellitus without complications; D64.9 Anemia, unspecified; E78.00 Pure hypercholesterolemia, unspecified; M06.9 Rheumatoid arthritis, unspecified; Z88.5 Allergy status to narcotic agent
CPT/HCPCS: 36415; 74176; 80048; 81001; 84484; 85025; 93005; 96374; 99291; G0378

== ENCOUNTER 2025-04-03 01:35 | Inpatient (IN) | payer MEDICARE, MEDICAID ==
[~2025-04-03] VITALS: Ht 154.9 cm; Wt 85.3 kg
[2025-04-03] VITALS (13 sets, daily range): BP systolic 144–175; BP diastolic 75–96; PULSE 68–92; RESP 14–18; TEMP 97.7–98.2; O2SAT 95–100
[~2025-04-03 01:35] MED LIST changes: +CARV6.2551 PO; +FAMO-12 PO; +PANT1INJ3 PO; +SEMA3TAB2 PO; +UPAD15TA PO
[2025-04-03 03:01] LABS: Hematocrit 34.3 % (36.0-46.0); Hemoglobin 11.6 g/dL (12.2-16.2); Mean Corpuscular Hemoglobin 31.6 pg (28.0-32.0); Mean Corpuscular Volume 93.7 fL (80.0-100.0); Nucleated Red Blood Cells % 0.2 %
[2025-04-03 03:07] LABS: Alanine Aminotransferase 20 U/L (7-40); Albumin 4.3 g/dL (3.2-4.8); Alkaline Phosphatase 62 U/L (46-116); Anion Gap 9 (5-15); BUN/Creatinine Ratio 22.4 (10.0-20.0); Blood Urea Nitrogen 19 mg/dL (9-23); Calcium 9.2 mg/dL (8.7-10.4); Carbon Dioxide 29 mmol/L (20-31); Chloride 105 mmol/L (98-107); Potassium 4.1 mmol/L (3.5-5.1); Sodium 143 mmol/L (136-145); Total Protein 7.3 g/dL (5.7-8.2)
[2025-04-03 03:22] LABS: Bilirubin, Total 0.2 mg/dL (0.2-1.0); Glucose 126 mg/dL (74-106)
--- NOTE | 2025-04-03 03:29 | DVH ---
CHEST RADIOGRAPH Indication: chestpain Technique: 1 view Comparison: None FINDINGS: Lines and Tubes: External leads. Lungs/Pleura: Hazy right basilar airspace opacity. No evident pleural abnormality. Cardiomediastinum: Unremarkable. Other: No acute osseous abnormality. IMPRESSION: Right basilar opacity may represent technique related artifact, mild or early pneumonia, scarring/ate lectasis or other etiology.
[2025-04-03] MEDS ORDERED: DEXTROSE (50%) 50ML SYRG IV PRN (03:45)
[2025-04-03] MEDS ORDERED: DOCUSATE SOD 100 MG CAP PO PRN (03:45)
[2025-04-03] MEDS ORDERED: ONDANSETRON HCL 4 MG/2 ML VIAL IV PRN (03:45)
[2025-04-03] MEDS ORDERED: NITROGLYCERIN 0.4 MG SL TAB SL PRN (03:45)
[2025-04-03 05:04] LABS: Hematocrit 33.6 % (36.0-46.0); Hemoglobin 11.4 g/dL (12.2-16.2); Mean Corpuscular Hemoglobin 31.6 pg (28.0-32.0); Mean Corpuscular Volume 93.0 fL (80.0-100.0); Nucleated Red Blood Cells % 0.1 %
[2025-04-03 05:28] LABS: Alanine Aminotransferase 19 U/L (7-40); Albumin 4.2 g/dL (3.2-4.8); Alkaline Phosphatase 60 U/L (46-116); Anion Gap 8 (5-15); BUN/Creatinine Ratio 25.3 (10.0-20.0); Blood Urea Nitrogen 20 mg/dL (9-23); Calcium 9.4 mg/dL (8.7-10.4); Carbon Dioxide 30 mmol/L (20-31); Chloride 106 mmol/L (98-107); Potassium 4.2 mmol/L (3.5-5.1); Sodium 144 mmol/L (136-145); Total Protein 7.2 g/dL (5.7-8.2)
[2025-04-03 05:29] LABS: Bilirubin, Total 0.3 mg/dL (0.2-1.0); Glucose 108 mg/dL (74-106)
[2025-04-03] MEDS: SODIUM CHLOR 0.9% PF (SALINE LOCK) 10ML VIAL/SYR IV SCH (06:15)
[2025-04-03] MEDS: LEVOTHYROXINE SODIUM 50 MCG TAB PO SCH (06:20)
[2025-04-03] MEDS: InsuLIN REG 1unit/0.01ml Soln (100units/ml) SC SCH (06:48)
[2025-04-03] MEDS: ACCU-CHEK COMFORT CURVE STRIP VI SCH (06:48)
--- NOTE | 2025-04-03 08:26 | ECG ---
[facility] Test Date: 2025-04-03 Test Time: 01:45:07 Pat Name: DEVAN MANN Department: [facility] ED Patient ID: [id number] Room: 0275T Gender: F Mend Worker: : 1945 Requested By: GUERLINE OLMEDO Order Number: [id number] Reading MD: Juan Dang Measurements Intervals [place] Rate: 71 P: 75 [place]: 190 QRS: 28 QRSD: 103 T: 56 QT: 408 QTc: 444 Interpretive Statements Sinus rhythm Consider left atrial enlargement Electronically Signed On 04-07-2025 13:28:43 PST by Juan Dang Please click the below link to view image of tracing.
--- NOTE | 2025-04-03 08:27 | ECG ---
[facility] Test Date: 2025-04-03 Test Time: 03:48:17 Pat Name: DEVAN MANN Department: [facility] ED Patient ID: [facility]-[id number] Room: 0275T Gender: F Education General Manager: : 1945 Requested By: GUERLINE OLMEDO Order Number: [id number] Reading MD: Juan Dang Measurements Intervals [place] Rate: 68 P: 78 [place]: 189 QRS: 51 QRSD: 110 T: 48 QT: 426 QTc: 454 Interpretive Statements Sinus rhythm RSR' in V1 or V2, right VCD or RVH Electronically Signed On 04-07-2025 13:28:51 PST by Juan Dang Please click the below link to view image of tracing.
[2025-04-03] MEDS ORDERED: ATENOLOL 25 MG TAB PO SCH (10:00)
[2025-04-03] MEDS: CARVEDILOL 3.125 MG TAB PO SCH (10:02)
[2025-04-03] MEDS: FAMOTIDINE (10MG/ML) 2ML VL IV SCH (11:18)
--- NOTE | 2025-04-03 11:35 | ED.PDOC ---
History of Present Illness HPI Comments 79-year-old female came to ER via EMS for chest pain. Patient is does have history of hypertension, diabetes, dyslipidemia. Has been having chest pain since 1900 hours. Lower chest pains radiating to midsternal area, pressure, intermittent, associated with nausea, vomiting 1x, and shortness of breath. On scene, blood pressure was 214/107 mmHg REVIEW OF SYSTEMS: General: No fever, no chills, or fatigue HEENT: No sore throat, no earache, no congestion, no neck pain. Cardiac: (+) chest pain. No palpitations. Lungs: (+) shortness of breath, no cough. GI: (+) nausea, (+) vomiting, no diarrhea, no constipation, no abdominal pain : No dysuria, frequency, or urgency. No hematuria. Musculoskeletal: No joint pain , no joint swelling, no extremity edema. Skin: No rash, no itching. Neuro: No headache, no dizziness, no weakness EXAM: General: Awake, alert and oriented. No acute distress. Skin: Skin in warm, dry and intact. Appropriate color for ethnicity. HEENT: The head is normocephalic and atraumatic. Conjunctivae are clear without exudates or hemorrhage. Sclera is non-icteric. EOM are intact. No signs of nystagmus. Eyelids are normal in appearance without swelling or lesions. Oral mucosa is pink and moist Neck: The neck is supple with normal range of motion. No JVD. Cardiac: Heart rate and rhythm are normal. No murmurs, gallops, or rubs are auscultated. Respiratory: No signs of respiratory distress. Lung sounds are clear in all lobes bilaterally without rales, rhonchi, or wheezes. Abdominal: Abdomen is soft, non-tender without distention. Bowel sounds are present and normoactive in all four quadrants. Extremities: Upper and lower extremities are atraumatic in appearance without deformity or edema. Neurological: The patient is awake, alert and oriented to person, place, and time with normal speech. Speech is clear. There is no facial asymmetry. Psychiatric: Appropriate mood and affect. Good judgement and insight Chief Complaint: Chest Pain Time Seen by MD: 02:20 Primary Care Provider: Maxim DECKER Reviewed Notes: Nurses Notes Allergies: Coded Allergies: Ibuprofen (Verified Allergy, Unknown, 04/17/24) Tramadol (Verified Allergy, Unknown, 04/17/24) Hydrocodone (Verified Adverse Reaction, Unknown, 04/17/24) Home Meds Reported Medications Famotidine (Famotidine) 20 Mg Tab, 40 MG PO DAILY for 30 Days, MG 04/18/24 Pantoprazole Sodium (PANTOPRAZOLE SODIUM) 40 Mg Inj, 40 MG PO DAILY, TAB 04/18/24 Semaglutide (Rybelsus) 3 Mg Tab, 3 MG PO AC, TAB 04/18/24 Upadacitinib (Rinvoq) 15 Mg Tab, 15 MG PO DAILY, TAB 04/18/24 Carvedilol (Carvedilol) 6.25 Mg Tab, 1 TAB PO DAILY 04/17/24 [Proctozone Cream] No Conflict Check 11/25/09 Folic Acid (Folic Acid) 1 Mg Tab, 1 MG OR DAILY 11/25/09 Ferrous Sulfate (Ferrous Sulfate) 325 Mg Tab, 325 MG OR TID 11/25/09 Atenolol (Atenolol) 25 Mg Tab, 25 MG OR DAILY 11/25/09 Lovastatin (Lovastatin) 40 Mg Tab, 40 MG PO DAILY 11/25/09 Docusate Sodium (Docusil) 100 Mg Cap, 100 MG OR 11/25/09 Potassium Chloride (K-Tabs) 10 Meq Tab, 10 MEQ OR 11/25/09 Hydrochlorothiazide W/Triamter (Triamterene/Hydrochloroth) 1 Cap Cap, 1 CAP OR DAILY 11/25/09 Levothyroxine Sodium (Levothyroxine Sodium) 125 Mcg Tab, 125 MCG OR DAILY 11/25/09 Metformin Hydrochloride (Metformin Hcl) 500 Mg Tab 11/25/09 [Embrel] No Conflict Check 11/25/09 Information Source: Patient, Emergency Med Personnel Mode of Arrival: EMS Past Medical History PAST MEDICAL HISTORY: Anemia, Arthritis, DM, High Lipids, HTN, Thyroid Surgical History: TOWEL FOLDER History: No Pertinent TOWEL FOLDER History Family History Family History: Reviewed,noncontributory to illness Social History Smoker: Non-Smoker Alcohol: Rarely Drugs: Denies Drug Use Lives In: Home Was a procedure done? Was a procedure done?: No Differential Dx Considerations may include: Anemia, electrolyte imbalance, hypertensive urgency, coronary artery disease, chest pain, anxiety X-Ray, Labs, Meds, VS Vital Signs Date Time Temp Pulse Resp B/P (MAP) Pulse Ox O2 Delivery O2 Flow Rate FiO2 04/03/25 01:35 98.4 84 18 143/68 100 98.4 Lab Test 04/03/25 02:33 04/03/25 01:40 Range/Units Troponin I High Sensitivity < 3 L 3 L </=34 ng/L White Blood Count 4.3 L 4.4-10.8 10^3/uL Red Blood Count 3.66 L 4.0-5.20 10^6/uL Hemoglobin 11.6 L 12.2-16.2 g/dL Hematocrit 34.3 L 36.0-46.0 % Mean Corpuscular Volume 93.7 80.0-100.0 fL Mean Corpuscular Hemoglobin 31.6 28.0-32.0 pg Mean Corpuscular Hemoglobin Concent 33.7 32.0-36.0 g/dL Red Cell Distribution Width 13.7 11.8-14.3 % Platelet Count 198 140-450 10^3/uL Mean Platelet Volume 7.8 6.9-10.8 fL Neutrophils (%) (Auto) 39.4 37.0-80.0 % Lymphocytes (%) (Auto) 47.9 10.0-50.0 % Monocytes (%) (Auto) 10.5 0.0-12.0 % Eosinophils (%) (Auto) 1.9 0.0-7.0 % Basophils (%) (Auto) 0.3 0.0-2.0 % Neutrophils # (Auto) 1.7 1.6-8.6 10 ^3/uL Lymphocytes # (Auto) 2.1 0.4-5.4 10 ^3/uL Monocytes # (Auto) 0.5 0-1.3 10 ^3/uL Eosinophils # (Auto) 0.1 0-0.8 10 ^3/uL Basophils # (Auto) 0 0-0.2 10 ^3/uL Nucleated Red Blood Cells 0.2 % Sodium Level 143 136-145 mmol/L Potassium Level 4.1 3.5-5.1 mmol/L Chloride Level 105 98-107 mmol/L Carbon Dioxide Level 29 20-31 mmol/L Anion Gap 9 5-15 Blood Urea Nitrogen 19 9-23 mg/dL Creatinine 0.85 0.550-1.02 mg/dL Glomerular Filtration Rate Calc 71 >90 mL/min BUN/Creatinine Ratio 22.4 H 10.0-20.0 Serum Glucose 126 H 74-106 mg/dL Calcium Level 9.2 8.7-10.4 mg/dL Total Bilirubin 0.2 0.2-1.0 mg/dL Aspartate Amino Transferase (AST) 25 13-40 U/L Alanine Aminotransferase (ALT) 20 7-40 U/L Alkaline Phosphatase 62 46-116 U/L Total Protein 7.3 5.7-8.2 g/dL Albumin 4.3 3.2-4.8 g/dL Time of 1ST Reevaluation: 02:09 Reevaluation 1ST: Unchanged Patient Education/Counseling: Need For Follow Up Family Education/Counseling: No Family Present SEPSIS Sepsis Screen Date sepsis recognized/suspect: Apr 03, 2025 Time Sepsis recognized/suspect: 134 Recent Procedure: No On Antibiotic Therapy: No Respiratory Rate >20: No Heart Rate >90: No Temp<36 C (96.8 F) or >38.3 C: No SBP <90 or MAP <65 mmHG: No New Acute Mental Status Change: No Is the patient on CPAP, BIPAP,: No Physician Orders Chest Portable (04/03/25 02:49) Electrocardigram (04/03/25 02:49) Troponin-I Hs (04/03/25 05:49) Electrocardigram (04/03/25 03:49) Electrocardigram (04/03/25 05:49) Titrate Oxygen (04/03/25 02:50) Oxygen (04/03/25 ) Continous Pulse Oximetry (04/03/25 02:50) Saline Lock (04/03/25 02:50) Camp Manager (04/03/25 ) Vital Signs Date Time Temp Pulse Resp B/P (MAP) Pulse Ox O2 Delivery O2 Flow Rate FiO2 04/03/25 01:35 98.4 84 18 143/68 100 98.4 Laboratory Tests Test 04/03/25 01:40 White Blood Count 4.3 10^3/uL (4.4-10.8) L Departure 1 Departure Time of Disposition: 03:26 Impression: Primary Impression: Chest pain Disposition: 02 SHORT TERM HOSPITAL Condition: Stable Comments 79-year-old female with chest pain and multiple risk factors. Patient admitted to hospitalist service for further treatment, evaluation and monitoring. Critical Care Note Critical Care Time?: No Stability Stability form required: No Heart Score Heart Score: Heart Score Response (Comments) Value History Moderate Suspicious [address]-Deviation 2 Age >65 2 Risk Factors >3 or Hx ASHD 2 Troponin Normal limit 0 Total 7 I personally scribed for GUERLINE OLMEDO MD ([email or web address]) on 04/03/25 at 02:23. Electronically submitted by Crow Rosario ([email or web address]). GUERLINE OLMEDO MD Apr 03, 2025 02:23
--- NOTE | 2025-04-03 11:38 | DVHHP2 ---
History of Present Illness Reason for Visit: Chest pain History of Present Illness The patient is a 79-year-old female with past medical history of DM, hyperlipidemia, thyroid disease, hypertension, arthritis, and anemia who presented to [facility] ED with complaint of chest pain. Patient reports she has been experiencing chest pain radiating to midsternal area, pressure in nature, intermittent, associated nausea, vomiting, shortness of kiera ths, getting worse that prompted this visit. Patient was seen and evaluated in the ED, laboratory data shows WBC 4.3, hemoglobin 11.6, hematocrit 34.3, platelets 198, sodium 143, potassium 4.1, BUN 19, creatinine 0.85, glucose 126, calcium 9.2, troponin <3, blood pressure 214/107 trending down to 143/68, heart rate 84, temperature 98.4 F, O2 saturation 97% on oxygen. Please see medication orders section in the computer. On my assessment, patient denied chest pain at this moment, no dizziness, headache, diaphoresis, currently on oxygen, no abdominal pain, diarrhea, nausea, vomiting, fever, no chills. Patient was admitted for further evaluation and medical management. Past Medical History Anemia, Arthritis, DM, High Lipids, HTN, Thyroid Past Surgical History Family History Reviewed, noncontributory to the management of this case. Past Social History The patient lives at home, denies smoking, alcohol or illicit drugs abuse. Review of Systems Constitutional: Yes: Weakness; No: Fever, Chills, Sweats, Malaise, Other Eyes: No: Pain, Vision change, Conjunctivae inflammation, Eyelid inflammation, Other, Redness ENT: No: Ear pain, Ear discharge, Nose pain, Nose discharge, Nose congestion, Mouth pain, Mouth swelling, Throat pain, Throat swelling, Other Respiratory: No: Cough, Dry, Shortness of breath, SOB with excertion, Wheezing, Hemoptysis, Pleuritic Pain, Sputum, Wheezing, Other Cardiovascular: Chest Pain; No: Palpitations, Orthopnea, Paroxysmal Noc. Dyspnea, Edema, Lt Headedness, Other Gastrointestinal: No: Nausea, Vomiting, Abdominal Pain, Diarrhea, Constipation, Melena, Hematochezia, Other Genitourinary: No Dysuria, No Frequency, No Incontinence, No Hematuria, No Retention, No Other Musculoskeletal: No: other, neck pain, shoulder pain, arm pain, back pain, hand pain, leg pain, foot pain Skin: No: Rash, Lesions, Jaundice, Bruising, Other Neurological: No: Weakness, Numbness, Incoordination, Change in speech, Confusion, Seizures, Other Allergies: Coded Allergies: Ibuprofen (Verified Allergy, Unknown, 04/17/24) Tramadol (Verified Allergy, Unknown, 04/17/24) Hydrocodone (Verified Adverse Reaction, Unknown, 04/17/24) Exam Vital Signs Vital Signs Date Time Temp Pulse Resp B/P (MAP) Pulse Ox O2 Delivery O2 Flow Rate FiO2 04/03/25 01:35 98.4 84 18 143/68 100 98.4 General Appearance: Alert, Oriented X3, Cooperative, No acute distress HEENT: Atraumatic, PERRLA, EOMI, Mucous membr. moist/pink Respiratory: Normal air movement Cardiovascular: Regular rate, Normal S1, Normal S2, No murmurs Abdominal: Normal bowel sounds, Soft, No tenderness, No hepatospenomegaly, No masses Extremities: No clubbing, No cyanosis, No edema, Normal pulses, No tenderness/swelling Skin: No rashes, No significant lesion Neuro: Normal speech, Normal tone, Sensation intact, Cranial nerves 3-12 NL, Reflexes 2+, Other (Generalized weakness) Psych/Mental Status: Mental status NL, Mood NL Labs/Xrays Labs Test 04/03/25 02:33 04/03/25 01:40 Range/Units Troponin I High Sensitivity < 3 L </=34 ng/L White Blood Count 4.3 L 4.4-10.8 10^3/uL Red Blood Count 3.66 L 4.0-5.20 10^6/uL Hemoglobin 11.6 L 12.2-16.2 g/dL Hematocrit 34.3 L 36.0-46.0 % Mean Corpuscular Volume 93.7 80.0-100.0 fL Mean Corpuscular Hemoglobin 31.6 28.0-32.0 pg Mean Corpuscular Hemoglobin Concent 33.7 32.0-36.0 g/dL Red Cell Distribution Width 13.7 11.8-14.3 % Platelet Count 198 140-450 10^3/uL Mean Platelet Volume 7.8 6.9-10.8 fL Neutrophils (%) (Auto) 39.4 37.0-80.0 % Lymphocytes (%) (Auto) 47.9 10.0-50.0 % Monocytes (%) (Auto) 10.5 0.0-12.0 % Eosinophils (%) (Auto) 1.9 0.0-7.0 % Basophils (%) (Auto) 0.3 0.0-2.0 % Neutrophils # (Auto) 1.7 1.6-8.6 10 ^3/uL Lymphocytes # (Auto) 2.1 0.4-5.4 10 ^3/uL Monocytes # (Auto) 0.5 0-1.3 10 ^3/uL Eosinophils # (Auto) 0.1 0-0.8 10 ^3/uL Basophils # (Auto) 0 0-0.2 10 ^3/uL Nucleated Red Blood Cells 0.2 % Sodium Level 143 136-145 mmol/L Potassium Level 4.1 3.5-5.1 mmol/L Chloride Level 105 98-107 mmol/L Carbon Dioxide Level 29 20-31 mmol/L Anion Gap 9 5-15 Blood Urea Nitrogen 19 9-23 mg/dL Creatinine 0.85 0.550-1.02 mg/dL Glomerular Filtration Rate Calc 71 >90 mL/min BUN/Creatinine Ratio 22.4 H 10.0-20.0 Serum Glucose 126 H 74-106 mg/dL Calcium Level 9.2 8.7-10.4 mg/dL Total Bilirubin 0.2 0.2-1.0 mg/dL Aspartate Amino Transferase (AST) 25 13-40 U/L Alanine Aminotransferase (ALT) 20 7-40 U/L Alkaline Phosphatase 62 46-116 U/L Total Protein 7.3 5.7-8.2 g/dL Albumin 4.3 3.2-4.8 g/dL SEPSIS Sepsis Screen Date sepsis recognized/suspect: Apr 03, 2025 Time Sepsis recognized/suspect: 0135 Recent Procedure: No On Antibiotic Therapy: No Respiratory Rate >20: No Heart Rate >90: No Temp<36 C (96.8 F) or >38.3 C: No SBP <90 or MAP <65 mmHG: No New Acute Mental Status Change: No Is the patient on CPAP, BIPAP,: No Physician Orders Chest Portable (04/03/25 02:49) Electrocardigram (04/03/25 02:49) Troponin-I Hs (04/03/25 05:49) Electrocardigram (04/03/25 03:49) Electrocardigram (04/03/25 05:49) Titrate Oxygen (04/03/25 02:50) Oxygen (04/03/25 ) Continous Pulse Oximetry (04/03/25 02:50) Saline Lock (04/03/25 02:50) Starting Sheet Tank Operator (04/03/25 ) Complete Blood Count (04/03/25 04:00) Comprehensive Metabolic Panel (04/03/25 04:00) Aspirin Tablet (04/03/25 10:00) Atorvastatin (Lipitor) (04/03/25 22:00) Carvedilol Tablet (Coreg Tablet) (04/03/25 10:00) Famotidine Injection (Pepcid Injection) (04/03/25 10:00) Levothyroxine Tablet (Synthroid Tablet) (04/03/25 06:00) Thyroid Stimulating Hormone (04/03/25 03:38) Consistent Carb(Ccho)Diabetes (04/03/25 Breakfast) Glucose Blood (Accu-Chek Comfort Curve T (04/03/25 07:00) Mild Sliding Scale (04/03/25 07:00) Dextrose 50% Syringe (04/03/25 03:45) Admit (04/03/25 03:38) Allergies (04/03/25 03:38) Code Status (04/03/25 03:38) Sodium Chloride Lock (Saline Lock Ns) (04/03/25 06:00) Oxygen Per Hour (04/03/25 03:38) Ondansetron Hcl (Zofran) (04/03/25 03:45) Docusate Sodium Capsule (Colace Capsule) (04/03/25 03:45) Fall Risk Precautions In Place QSHIFT (04/03/25 03:38) Complete Blood Count (04/04/25 04:00) Comprehensive Metabolic Panel (04/04/25 04:00) Condition: Serious (04/03/25 03:38) Acetaminophen Tablet (Tylenol Tablet) (04/03/25 03:45) Maintain Bed Rest (04/03/25 03:38) Sequential Compression Device (04/03/25 ) Nitroglycerin Sublingual (Ntrostat Subli (04/03/25 03:45) Stat Ekg For Chest Pain (04/03/25 03:38) Notify Md Of Changes From Base (04/03/25 03:38) Collection Manager For 24 Hours (04/03/25 03:38) Emergency Dysrhythmia Protocol (04/03/25 03:38) Rhythm Strips Once Every Shift (04/03/25 03:38) Oxygen By Nasal Cannula (04/03/25 03:38) Vital Signs Date Time Temp Pulse Resp B/P (MAP) Pulse Ox O2 Delivery O2 Flow Rate FiO2 04/03/25 01:35 98.4 84 18 143/68 100 98.4 Laboratory Tests Test 04/03/25 01:40 White Blood Count 4.3 10^3/uL (4.4-10.8) L Assessment/Plan Assessment/Plan Chest pain Hypertensive urgency Generalized weakness Plan 1. Admit to telemetry unit 2. Breathing treatment 3. Pain control management 4. Management of fluids and electrolytes 5. Consultation for hospitalist 6. Diagnostic tests-chest x-ray 7. DVT prophylaxis -on aspirin 8. Repeat labs CBC, CMP in a.m. 9. Continue with current medical management 10. Treatment plan discussed with patient and RN. Patient verbalized understanding. Plan discussed with: Patient, Other (RN) My Orders Orders - MARILYN AYON DNP Procedure Category Date Status Time Complete Blood Count LAB 04/03/25 Verified 04:00 Comprehensive LAB 04/03/25 Verified Metabolic Panel 04:00 Aspirin Tablet PHA 04/03/25 Verified 10:00 Atorvastatin (Lipitor) PHA 04/03/25 Verified 22:00 Carvedilol Tablet PHA 04/03/25 Verified (Coreg Tablet) 10:00 Famotidine Injection PHA 04/03/25 Verified (Pepcid Injection) 10:00 Levothyroxine Tablet PHA 04/03/25 Verified (Synthroid Tablet) 06:00 Thyroid Stimulating LAB 04/03/25 Verified Hormone 03:38 Consistent DIET 04/03/25 Verified Carb(Ccho)Diabetes Breakfast Glucose Blood PHA 04/03/25 Verified (Accu-Chek Comfort 07:00 Mild Sliding Scale PHA 04/03/25 Verified 07:00 Dextrose 50% Syringe PHA 04/03/25 Verified 03:45 Admit ADMIT 04/03/25 Verified 03:38 Allergies ELMO 04/03/25 Verified 03:38 Code Status CODE 04/03/25 Verified 03:38 Sodium Chloride Lock PHA 04/03/25 Verified (Saline Lock Ns) 06:00 Oxygen Per Hour RT 04/03/25 Verified 03:38 Ondansetron Hcl [facility] 04/03/25 Verified (Zofran) 03:45 Docusate Sodium [facility] 04/03/25 Verified Capsule (Colace 03:45 Fall Risk Precautions [facility] 04/03/[address] 03:38 Complete Blood Count LAB 04/04/25 Verified 04:00 Comprehensive LAB 04/04/25 Verified Metabolic Panel 04:00 Condition: Serious [facility] 04/03/25 Verified 03:38 Acetaminophen Tablet [facility] 04/03/25 Verified (Tylenol Tablet) 03:45 Maintain Bed Rest [facility] 04/03/25 Verified 03:38 Sequential [facility] 04/03/25 Verified Compression Device Nitroglycerin [facility] 04/03/25 Verified Sublingual (Ntrostat 03:45 Stat Ekg For Chest [facility] 04/03/25 Verified Pain 03:38 Notify Md Of Changes [facility] 04/03/25 Verified From Base 03:38 Collection Manager For [facility] 04/03/25 Verified 24 Hours 03:38 Emergency Dysrhythmia [facility] 04/03/25 Verified Protocol 03:38 Rhythm Strips Once [facility] 04/03/25 Verified Every Shift 03:38 Oxygen By Nasal RT 04/03/25 Verified Cannula 03:38 Problem List: (1) Chest pain (2) Hypertensive urgency (3) Generalized weakness Date of Service: Apr 03, 2025 Billing Provider: MARILYN AYON DNP Common Visit Codes: [id number] INP/OBS CARE (HIGH) MARILYN AYON DNP Apr 03, 2025 03:45
[2025-04-03] MEDS: hydrALAZINE HCL 20 MG/ML VL IV PRN (12:59)
[2025-04-03] MEDS: ALBUTEROL SULF 2.5 MG/0.5ML(0.5%) NEB SOLN NEB SCH (13:46)
--- NOTE | 2025-04-03 15:06 | DVHPN2 ---
Progress Note Date Seen: Apr 03, 2025 Medical Necessity Reason Pt with a Central, PICC or Fol: No Subjective Patient reports: No new complaints (Patient is resting comfortably med. With the intermittent discomfort in the chest. No chest pain) Objective vital signs Vital Sign Date Time Temp Pulse Resp B/P (MAP) Pulse Ox O2 Delivery O2 Flow Rate FiO2 04/03/25 12:59 175/96 04/03/25 11:02 68 04/03/25 10:18 98.2 18 95 98.2 04/03/25 10:18 Room Air* 0 21 medications Current Medications Medications Dose Ordered Sig/Ran Route Start Time Stop Time Status Last Admin Dose Admin Aspirin 81 mg DAILY PO 04/03/25 10:00 04/03/25 10:02 81 MG Atorvastatin Calcium 20 mg HS PO 04/03/25 22:00 Carvedilol 6.25 mg Q12HR PO 04/03/25 10:00 04/03/25 10:02 6.25 MG Famotidine 20 mg DAILY IV 04/03/25 10:00 04/03/25 11:18 20 MG Levothyroxine Sodium 125 mcg QAM@0600 PO 04/03/25 06:00 04/03/25 06:20 125 MCG Diagnostic Test (Pha) 1 strip ACHS 04/03/25 07:00 04/03/25 11:28 1 STRIP Insulin Human Regular ACHS SC 04/03/25 07:00 Dextrose 50 ml UD PRN IV 04/03/25 03:45 Sodium Chloride 10 ml Q8HR IV 04/03/25 06:00 04/03/25 13:24 10 ML Ondansetron HCl 4 mg Q4HP PRN IV 04/03/25 03:45 Docusate Sodium 100 mg BIDPRN PRN PO 04/03/25 03:45 Acetaminophen 650 mg Q6HP PRN PO 04/03/25 03:45 Nitroglycerin 0.4 mg Q5MINP PRN SL 04/03/25 03:45 Hydralazine HCl 10 mg Q6HP PRN IV 04/03/25 07:15 04/03/25 12:59 10 MG Atenolol 25 mg DAILY PO 04/03/25 10:00 Hold Albuterol 2.5 mg Q4HR NEB 04/03/25 14:00 04/03/25 13:46 2.5 MG Examination Generally 79 years old woman, well known rate and rhythm. No apparent distress HEENT-18 well nondistended Heart-regular rate and rhythm Lungs decreased breath sounds bilaterally Abdomen soft nontender nondistended Musculoskeletal-no edema cyanosis Neuro-AO x3, no focal deficits laboratory and microbiology Laboratory Tests 04/03/25 04:41 Test 04/03/25 04:41 Range/Units Serum Glucose 108 H 74-106 mg/dL Problem List/Assessment/Plan Problem List/Assessment/Plan Chest pain Hypertensive urgency Generalized weakness Plan Breathing treatment Pain control management Management of fluids and electrolytes DVT prophylaxis -on aspirin Continue with current medical management Monitor respiratory status Plan discussed with: Patient, Son My Orders My Orders Orders - SALIMA PHOENIX MD Procedure Category Date Status Time Albuterol Medneb PHA 04/03/25 In Process (Ventolin Medneb) 14:00 Date of Service: Apr 03, 2025 Billing Provider: SALIMA PHOENIX MD Common Visit Codes: [id number] SAME DATE (MOD) SALIMA PHOENIX MD Apr 03, 2025 15:06
[2025-04-03] MEDS: predniSONE 20 MG TAB PO SCH (16:01)
[2025-04-03] MEDS: PANTOPRAZOLE 40 MG/10 ML VIAL INJ IV SCH (16:01)
[2025-04-03] MEDS: ACETAMINOPHEN 325 MG TAB PO PRN (16:10)
[2025-04-03] MEDS ORDERED: ALBUTEROL SULF 2.5 MG/0.5ML(0.5%) NEB SOLN NEB SCH (18:00)
[2025-04-03] MEDS: IPRATROPIUM BROM 0.5 MG/2.5ML INH SOL NEB SCH (18:00)
[2025-04-03] MEDS: ATORVASTATIN 20 MG TAB PO SCH (21:58)
[2025-04-03] MEDS: HEPARIN SODIUM (PORCINE) 5000 UNITS/ML 1ML VIAL SC SCH (21:59)
[2025-04-04] VITALS (9 sets, daily range): BP systolic 125–161; BP diastolic 70–97; PULSE 74–94; RESP 14–18; TEMP 36.5; O2SAT 94–100
[2025-04-04 05:34] LABS: Hematocrit 36.1 % (36.0-46.0); Hemoglobin 12.3 g/dL (12.2-16.2); Mean Corpuscular Hemoglobin 32.0 pg (28.0-32.0); Mean Corpuscular Volume 93.5 fL (80.0-100.0); Nucleated Red Blood Cells % 0.0 %
[2025-04-04 05:52] LABS: Alanine Aminotransferase 18 U/L (7-40); Albumin 4.3 g/dL (3.2-4.8); Alkaline Phosphatase 67 U/L (46-116); Anion Gap 12 (5-15); BUN/Creatinine Ratio 16.3 (10.0-20.0); Blood Urea Nitrogen 13 mg/dL (9-23); Calcium 9.3 mg/dL (8.7-10.4); Carbon Dioxide 24 mmol/L (20-31); Chloride 107 mmol/L (98-107); Potassium 3.7 mmol/L (3.5-5.1); Sodium 143 mmol/L (136-145); Total Protein 7.7 g/dL (5.7-8.2)
[2025-04-04 05:53] LABS: Bilirubin, Total 0.4 mg/dL (0.2-1.0)
[2025-04-04 05:56] LABS: Glucose 121 mg/dL (74-106)
[2025-04-04] MEDS ORDERED: PRED20TA2 PO (15:32)
--- NOTE | 2025-04-04 15:35 | DVHDS2 ---
Discharge Summary Date of Admission Apr 03, 2025 at 03:38 Date of Discharge: Apr 04, 2025 Admitting Diagnosis Chest pain Shortness of breaths Labs/Diagnostic Data: Laboratory Results Test 04/04/25 12:07 04/04/25 05:00 04/03/25 04:41 04/03/25 01:40 POC Glucose 116 mg/dl (70-106) White Blood Count 4.3 10^3/uL (4.4-10.8) Red Blood Count 3.86 10^6/uL (4.0-5.20) Hemoglobin 12.3 g/dL (12.2-16.2) Hematocrit 36.1 % (36.0-46.0) Mean Corpuscular Volume 93.5 fL (80.0-100.0) Mean Corpuscular Hemoglobin 32.0 pg (28.0-32.0) Mean Corpuscular Hemoglobin Concent 34.2 g/dL (32.0-36.0) Red Cell Distribution Width 13.9 % (11.8-14.3) Platelet Count 218 10^3/uL (140-450) Mean Platelet Volume 7.7 fL (6.9-10.8) Neutrophils (%) (Auto) 77.2 % (37.0-80.0) Lymphocytes (%) (Auto) 15.8 % (10.0-50.0) Monocytes (%) (Auto) 6.9 % (0.0-12.0) Eosinophils (%) (Auto) 0.0 % (0.0-7.0) Basophils (%) (Auto) 0.1 % (0.0-2.0) Neutrophils # (Auto) 3.3 10 ^3/uL (1.6-8.6) Lymphocytes # (Auto) 0.7 10 ^3/uL (0.4-5.4) Monocytes # (Auto) 0.3 10 ^3/uL (0-1.3) Eosinophils # (Auto) 0 10 ^3/uL (0-0.8) Basophils # (Auto) 0 10 ^3/uL (0-0.2) Nucleated Red Blood Cells 0.0 % Sodium Level 143 mmol/L (136-145) Potassium Level 3.7 mmol/L (3.5-5.1) Chloride Level 107 mmol/L (98-107) Carbon Dioxide Level 24 mmol/L (20-31) Anion Gap 12 (5-15) Blood Urea Nitrogen 13 mg/dL (9-23) Creatinine 0.80 mg/dL (0.550-1.02) Glomerular Filtration Rate Calc 76 mL/min (>90) BUN/Creatinine Ratio 16.3 (10.0-20.0) Serum Glucose 121 mg/dL (74-106) Calcium Level 9.3 mg/dL (8.7-10.4) Total Bilirubin 0.4 mg/dL (0.2-1.0) Aspartate Amino Transferase (AST) 27 U/L (13-40) Alanine Aminotransferase (ALT) 18 U/L (7-40) Alkaline Phosphatase 67 U/L (46-116) Total Protein 7.7 g/dL (5.7-8.2) Albumin 4.3 g/dL (3.2-4.8) Erythrocyte Sedimentation Rate 17 mm/hr (0-20) Troponin I High Sensitivity 4 ng/L (</=34) C-Reactive Protein High Sensitivity 0.11 mg/dL (<1.0) Thyroid Stimulating Hormone (TSH) 0.56 uIU/mL (0.55-4.78) Other Laboratory Tests 04/04/25 05:00 Brief Hx & Hospital Course: Patient's 79 years old woman admitted for chest pain rule out ACS. Troponin negative. EKG cyanosis without ST segment changes. Examination shows hypoventilation of the lungs. Starting prednisone and nebulizer. Patient's respiratory status improved. Patient is stable to be discharged home p.o. prednisone. Condition at Discharge: Stable Final Diagnosis/Problems List Chest pain Shortness rate and likely due to COPD exacerbation Discharge Disposition: Home Discharge Instruct/Medications Diet: Cardiac 2g Na,low cholest Activity: No Restrictions, As Tolerated Follow Up/Referral: Follow with the PCP in one week. Consider changing atenolol to different form of antihypertensive in view of COPD exacerbation Scheduled Atenolol (Atenolol), 25 MG OR DAILY, (Reported) Carvedilol (Carvedilol), 1 TAB PO DAILY, (Reported) Famotidine (Famotidine), 40 MG PO DAILY, (Reported) Ferrous Sulfate (Ferrous Sulfate), 325 MG OR TID, (Reported) Folic Acid (Folic Acid), 1 MG OR DAILY, (Reported) Hydrochlorothiazide W/Triamter (Triamterene/Hydrochloroth), 1 CAP OR DAILY, (Reported) Levothyroxine Sodium (Levothyroxine Sodium), 125 MCG OR DAILY, (Reported) Lovastatin (Lovastatin), 40 MG PO DAILY, (Reported) Pantoprazole Sodium (Pantoprazole Sodium), 40 MG PO DAILY, (Reported) Prednisone (Prednisone), 60 MG PO DAILY Semaglutide (Rybelsus), 3 MG PO AC, (Reported) Upadacitinib (Rinvoq), 15 MG PO DAILY, (Reported) Miscellaneous Medications Docusate Sodium (Docusil), 100 MG OR, (Reported) Metformin Hydrochloride (Metformin Hcl), (Reported) Potassium Chloride (K-Tabs), 10 MEQ OR, (Reported) [Embrel], (Reported) [Proctozone Cream], (Reported) Discharge Statement: "Patient was advised to return to the ER or call 911 if any headaches, dizziness, shortness of breath, chest pain, abdominal pain, bleeding, fevers, or worsening of medical condition. Patient was counseled about treatment plan, medications, possible side effects, patientverbalized understanding. All questions were answered to the best of my ability. This discharge took greater then 30 minutes in planning, reviewing documentation, counseling the patient, and discussing with other team members." ASSESSMENT ASSESSMENT Assessment Chest pain Shortness rate and likely due to COPD exacerbation Date of Service: Apr 04, 2025 Billing Provider: SALIMA PHOENIX MD Common Visit Codes: 78180-NEC/OBS DISCH DAY >30min SALIMA PHOENIX MD Apr 04, 2025 15:34
== END 2025-04-04 16:43 | disposition home or self-care (01) | DRG 305 ==
LOC: EDBD 01:35 → ER 01:35 → OVERFLOW 03:38 → TELE-WESTW 09:24
PROVIDERS: ADMIT Internal Medicine; ATTEND Internal Medicine
DX: I16.0 Hypertensive urgency (principal); J44.1 Chronic obstructive pulmonary disease with (acute) exacerbation; E11.9 Type 2 diabetes mellitus without complications; I10 Essential (primary) hypertension; E78.5 Hyperlipidemia, unspecified; Z88.6 Allergy status to analgesic agent; Z79.899 Other long term (current) drug therapy
CPT/HCPCS: 36415; 71045; 80053; 82962; 84443; 84484; 85025; 85652; 86141; 93005; 94640; 96374; 96375; G0378; J1815; J2470; J3490